=== PATIENT | male | born 1955 | race Caucasian/White ===

== ENCOUNTER 2018-01-31 19:49 | Emergency (ER) | payer OTHER ==
[2018-02-01] MEDS: IBUPROFEN 600 MG TAB PO (00:58)
[2018-02-01] MEDS: LIDOCAINE 1%/EPI 30 ML INJ INJ (00:59)
== END 2018-02-01 03:50 | disposition home or self-care (01) ==
LOC: FTE 19:49
DX: L72.3 Sebaceous cyst (principal)
CPT/HCPCS: 10061; 99283-25

== ENCOUNTER 2018-02-02 21:19 | Emergency (ER) | payer OTHER | END 2018-02-02 22:00 | disposition home or self-care (01) | LOC: FTE 21:19 | DX: Z48.01 Encounter for change or removal of surgical wound dressing (principal) | CPT/HCPCS: 99281 ==

== ENCOUNTER 2019-01-21 08:06 | Day surgery (SDC) | payer OTHER ==
[~2019-01-21 08:06] MED LIST: ACETAZOLAMIDE 250 MG TAB PO; CARBACHOL 0.01% 1.5 ML OPH INJ; EPINEPHrine 1 MG INJ; ERYTHROMYCIN 1 GM OPH OINT ZFS; LIDOCAINE 1%/EPI (1:100,000) (MDV) 20 ML; LIDOCAINE 4% (MPF) 5 ML INJ OPER; NA HYALURONATE/CHONDROITIN 0.5 ML SYG; TETRACAINE 0.5% 4 ML OPH; TOBRAMYCIN 0.3% 3.5 GM OPH OINT
[2019-01-21] MEDS: DICLOFENAC 0.1% 2.5 ML OPH OPER (08:26)
[2019-01-21] MEDS ORDERED: TOBRAMYCIN/DEXAMETH 3.5 GM OPH OINT (08:26)
[2019-01-21] MEDS: MOXIFLOXACIN 0.5% 3 ML OPH OPER (08:27)
[2019-01-21] MEDS: PHENYLephrine 10% 5 ML OPH OPER (08:27)
[2019-01-21] MEDS: TROPICAMIDE 1% 15 ML OPH OPER (08:28)
[2019-01-21] MEDS: TETRACAINE 0.5% 4 ML OPH RIGHT EYE (08:35)
[2019-01-21] MEDS: LIDOCAINE 1%/EPI (1:100,000) (MDV) 20 ML INJ (08:35)
[2019-01-21] MEDS: SODIUM HYALURONATE 14 MG/ML SYG IO (08:49)
[2019-01-21] MEDS ORDERED: TETRACAINE 0.5% 4 ML OPH (08:55)
[2019-01-21] MEDS ORDERED: TETRACAINE 0.5% 4 ML OPH RIGHT EYE (09:00)
[2019-01-21] MEDS ORDERED: LACTATED RINGER'S 1,000 ML IV (09:30)
[2019-01-21] MEDS ORDERED: FENTAnyl 50 MCG/ML VIAL (09:55)
[2019-01-21] MEDS ORDERED: ALBUTEROL 0.083% (NEB) 2.5 MG/3 ML AMP HHN (10:00)
[2019-01-21] MEDS ORDERED: FENTAnyl 50 MCG/ML VIAL IV (10:00)
[2019-01-21] MEDS ORDERED: DIPHENHYDRAMINE 50 MG INJ IV (10:00)
[2019-01-21] MEDS ORDERED: ACETAMINOPHEN 500 MG TAB PO (10:00)
[2019-01-21] MEDS ORDERED: OXYCODONE/ACETAMINOPHEN (5/325) TAB PO (10:00)
[2019-01-21] MEDS ORDERED: ONDANSETRON 4 MG INJ IV (10:00)
[2019-01-21] MEDS ORDERED: ACETAMINOPHEN 325 MG TAB PO (10:00)
[2019-01-21] MEDS ORDERED: hydrALAzine 20 MG INJ IV (10:00)
[2019-01-21] MEDS ORDERED: LABETALOL HCL 20MG INJ IV (10:00)
== END 2019-01-21 11:41 | disposition home or self-care (01) ==
LOC: SDS 08:06
DX: H26.8 Other specified cataract (principal)
CPT/HCPCS: 66984